=== PATIENT | female | born 1945 | race Caucasian/White ===

== ENCOUNTER 2017-12-15 07:39 | Inpatient (IN) | payer MEDICARE ==
[~2017-12-15] VITALS: Ht 165.1 cm; Wt 102.7 kg
[~2017-12-15 07:39] MED LIST: ACETAMIN500 M2 PO; AMLODIPINE BESYL5 MG PO; ATORVASTATIN CA10 MG PO; CLONIDINE0.3 MG PO; COMBIVENT RESPIMAT IN; FLONASE AL50 MCG/ACT; LANTUS SOL100 UNIT/M SC; LOSARTAN POT50 MG PO; MAGNESIUM400 M1; MELOXICAM15 MG PO; METFORMIN HCL500 M3 PO; PEPCID20 MG PO; PRILOSEC20 MG PO; SG ASA LOW81 M1 PO; SINGULAIR10 MG PO; TENORMIN50 MG PO; TRAMADOL HYDROC50 MG PO; TRIAMCINOLON0.11 EX; VITAMIN D2000 UNI1 PO
[2017-12-15] MEDS ORDERED: METRONIDAZOL500 MG PO (08:30)
[2017-12-15] MEDS ORDERED: METOPROL TAR25 MG PO (08:30)
[2017-12-15] MEDS ORDERED: PREDNISONE20 MG PO (08:31)
[2017-12-15] MEDS ORDERED: VERAPAMIL180 M2 PO (08:37)
[2017-12-15 08:46] LABS: HEMATOCRIT 37.5 % (37.0-47.0); HEMOGLOBIN 12.4 g/dl (12.0-16.0); IMMATURE GRANULOCYTES 1.2 % (0.0-1.0); MEAN CORPUSCULAR HGB 28.1 pG CALC (26.0-32.0); MEAN CORPUSCULAR HGB CONC 33.1 g/L CALC (32.0-36.0); NEUT# 8.1 thou/uL (2.00-7.15); RED BLOOD COUNT 4.41 mill/uL (4.20-5.60); RED CELL DISTRI WIDTH 15.8 % (11.5-15.5)
[2017-12-15 09:01] LABS: ALBUMIN 3.4 g/dL (3.2-5.0); ALKALINE PHOSPHATASE 73 u/l (38-126); BILIRUBIN, TOTAL 0.6 mg/dL (0.0-1.4); BUN 9 mg/dL (8-23); BUN/CREATININE RATIO 15 (12-20 (CALC)); CARBON DIOXIDE 28 mmol/l (22-30); CHLORIDE 96 mmol/l (95-108); CREATININE 0.6 mg/dL (0.5-1.0); GFR > 60 ML/MIN (>=60 (CALC)); GFR FOR AFR.AMER. > 60 ML/MIN (>=60 (CALC)); LIPASE 101 u/l (23-300); POTASSIUM 4.9 mmol/l (3.5-5.1); SGOT/AST 23 u/l (9-36); SGPT/ALT 69 u/l (11-66); TOTAL PROTEIN 6.7 g/dL (6.3-8.2)
[2017-12-15 09:04] LABS: ANION GAP 13 (6-22 (CALC)); SODIUM 132 mmol/l (137-146)
[2017-12-15 13:33] VITALS: BP 171/80
[2017-12-15 14:08] LABS: URINE BILIRUBIN - DIPSTICK NEGATIVE (NEGATIVE); URINE BLOOD DIPSTICK NEGATIVE (NEGATIVE); URINE CLARITY CLEAR; URINE COLOR YELLOW; URINE GLUCOSE - DIPSTICK NEGATIVE (NEGATIVE); URINE KETONE TRACE mg/dL (NEGATIVE); URINE LEUK ESTERASE NEGATIVE (NEGATIVE); URINE NITRITE - DIPSTICK NEGATIVE (Negative); URINE PROTEIN - DIPSTICK TRACE mg/dL (NEG-TRACE); URINE UROBILINOGEN - DIPSTICK 0.2 E.U./dL (0.2)
[2017-12-15 15:51] LABS: C. DIFFICILE TOXIN A&B NEGATIVE (NEGATIVE)
[2017-12-15 16:00] VITALS: BP 161/81
[2017-12-15 19:00] VITALS: BP 132/67
[2017-12-16 04:48] VITALS: BP 140/66
[2017-12-16 05:06] LABS: HEMATOCRIT 34.1 % (37.0-47.0); HEMOGLOBIN 11.3 g/dl (12.0-16.0); IMMATURE GRANULOCYTES 1.3 % (0.0-1.0); MEAN CELL VOLUME 86.1 fL CALC (80.0-100.0); MEAN CORPUSCULAR HGB 28.5 pG CALC (26.0-32.0); MEAN CORPUSCULAR HGB CONC 33.1 g/L CALC (32.0-36.0); NEUT# 6.8 thou/uL (2.00-7.15); RED BLOOD COUNT 3.96 mill/uL (4.20-5.60); RED CELL DISTRI WIDTH 16.3 % (11.5-15.5)
[2017-12-16 05:26] LABS: ALKALINE PHOSPHATASE 55 u/l (38-126); ANION GAP 13 (6-22 (CALC)); BILIRUBIN, TOTAL 0.5 mg/dL (0.0-1.4); BUN 11 mg/dL (8-23); BUN/CREATININE RATIO 12 (12-20 (CALC)); CARBON DIOXIDE 28 mmol/l (22-30); CHLORIDE 98 mmol/l (95-108); CREATININE 0.9 mg/dL (0.5-1.0); GFR > 60 ML/MIN (>=60 (CALC)); GFR FOR AFR.AMER. > 60 ML/MIN (>=60 (CALC)); POTASSIUM 4.3 mmol/l (3.5-5.1); SGOT/AST 21 u/l (9-36); SGPT/ALT 63 u/l (11-66); SODIUM 134 mmol/l (137-146)
[2017-12-16 07:51] VITALS: BP 145/69
[2017-12-16 09:33] LABS: MAGNESIUM 1.8 mg/dL (1.6-2.3)
[2017-12-16 15:11] VITALS: BP 138/67
[2017-12-16 16:08] VITALS: BP 112/52
[2017-12-16 20:10] VITALS: BP 116/60
[2017-12-17 04:51] LABS: HEMATOCRIT 32.1 % (37.0-47.0); HEMOGLOBIN 10.6 g/dl (12.0-16.0); IMMATURE GRANULOCYTES 1.2 % (0.0-1.0); MEAN CELL VOLUME 86.5 fL CALC (80.0-100.0); MEAN CORPUSCULAR HGB 28.6 pG CALC (26.0-32.0); NEUT# 6.16 thou/uL (2.00-7.15); RED BLOOD COUNT 3.71 mill/uL (4.20-5.60); RED CELL DISTRI WIDTH 16.7 % (11.5-15.5)
[2017-12-17 04:56] VITALS: BP 127/65
[2017-12-17 05:04] LABS: ANION GAP 14 (6-22 (CALC)); BUN 13 mg/dL (8-23); BUN/CREATININE RATIO 15 (12-20 (CALC)); CARBON DIOXIDE 26 mmol/l (22-30); CHLORIDE 100 mmol/l (95-108); CREATININE 0.9 mg/dL (0.5-1.0); GFR > 60 ML/MIN (>=60 (CALC)); GFR FOR AFR.AMER. > 60 ML/MIN (>=60 (CALC)); MAGNESIUM 1.8 mg/dL (1.6-2.3); POTASSIUM 4.4 mmol/l (3.5-5.1); SODIUM 135 mmol/l (137-146)
[2017-12-17 07:50] VITALS: BP 132/72
[2017-12-17 15:33] VITALS: BP 109/61
[2017-12-17 19:52] VITALS: BP 130/70
[2017-12-18 04:19] VITALS: BP 115/50
[2017-12-18 07:40] VITALS: BP 105/51
[2017-12-18] MEDS ORDERED: FLORASTOR250 M1 PO (12:09)
[2017-12-18] MEDS ORDERED: TRAMADOL HYDROC50 MG PO (12:09)
[2017-12-18] MEDS ORDERED: catapres PO (12:12)
[2017-12-18 15:06] VITALS: BP 105/51
== END 2017-12-18 15:48 | DRG 394 ==
LOC: ED 07:39 → ED-I 10:34 → ED 10:55 → MS2 10:56
PROVIDERS: Emergency Medicine; Nurse Practitioner; Nurse Practitioner Family; ADMIT Internal Medicine; ATTEND Internal Medicine
DX: K52.1 Toxic gastroenteritis and colitis (principal); T38.3X5A Adverse effect of insulin and oral hypoglycemic [antidiabetic] drugs, initial encounter; T36.0X5A Adverse effect of penicillins, initial encounter; T47.1X5A Adverse effect of other antacids and anti-gastric-secretion drugs, initial encounter; T37.3X5A Adverse effect of other antiprotozoal drugs, initial encounter; I47.1 Supraventricular tachycardia; E11.22 Type 2 diabetes mellitus with diabetic chronic kidney disease; E11.42 Type 2 diabetes mellitus with diabetic polyneuropathy; E11.65 Type 2 diabetes mellitus with hyperglycemia; I48.91 Unspecified atrial fibrillation; I12.9 Hypertensive chronic kidney disease with stage 1 through stage 4 chronic kidney disease, or unspecified chronic kidney disease; E86.0 Dehydration; E78.5 Hyperlipidemia, unspecified; N18.3 Chronic kidney disease, stage 3 (moderate); J44.9 Chronic obstructive pulmonary disease, unspecified; M06.9 Rheumatoid arthritis, unspecified; I25.10 Atherosclerotic heart disease of native coronary artery without angina pectoris; K80.20 Calculus of gallbladder without cholecystitis without obstruction; K57.30 Diverticulosis of large intestine without perforation or abscess without bleeding; Z79.4 Long term (current) use of insulin; Z87.01 Personal history of pneumonia (recurrent); Z87.891 Personal history of nicotine dependence
CPT/HCPCS: J1650

== ENCOUNTER 2017-12-27 08:30 | Inpatient (IN) | payer MEDICARE ==
[~2017-12-27] VITALS: Ht 165.1 cm; Wt 105.0 kg
[2017-12-27 08:30] VITALS: BP 160/65
[~2017-12-27 08:30] MED LIST changes: +FLORASTOR250 M1 PO; +METOPROL TAR25 MG PO; +METRONIDAZOL500 MG PO; +PREDNISONE20 MG PO; +VERAPAMIL180 M2 PO; +catapres PO
[2017-12-27 12:53] VITALS: BP 164/65
[2017-12-27 13:40] LABS: ALBUMIN 3.4 g/dL (3.2-5.0); BILIRUBIN, TOTAL 0.4 mg/dL (0.0-1.4); CREATININE 1.8 mg/dL (0.5-1.0); POTASSIUM 4.1 mmol/l (3.5-5.1); TOTAL PROTEIN 6.8 g/dL (6.3-8.2)
[2017-12-27 17:54] VITALS: BP 148/61
[2017-12-27 20:20] VITALS: BP 160/72
[2017-12-27 22:48] LABS: URINE BILIRUBIN - DIPSTICK NEGATIVE (NEGATIVE); URINE BLOOD DIPSTICK NEGATIVE (NEGATIVE); URINE COLOR YELLOW; URINE GLUCOSE - DIPSTICK NEGATIVE (NEGATIVE); URINE KETONE NEGATIVE (NEGATIVE); URINE LEUK ESTERASE NEGATIVE (NEGATIVE); URINE NITRITE - DIPSTICK NEGATIVE (Negative); URINE PROTEIN - DIPSTICK NEGATIVE (NEG-TRACE); URINE UROBILINOGEN - DIPSTICK 0.2 E.U./dL (0.2)
[2017-12-27 22:50] LABS: URINE CLARITY CLEAR
[2017-12-27 23:40] VITALS: BP 154/79
[2017-12-28 03:52] VITALS: BP 168/67
[2017-12-28 06:16] LABS: HEMATOCRIT 31.1 % (37.0-47.0); HEMOGLOBIN 10.4 g/dl (12.0-16.0); MEAN CELL VOLUME 86.6 fL CALC (80.0-100.0); MEAN CORPUSCULAR HGB CONC 33.4 g/L CALC (32.0-36.0); RED BLOOD COUNT 3.59 mill/uL (4.20-5.60); RED CELL DISTRI WIDTH 15.9 % (11.5-15.5)
[2017-12-28 06:45] LABS: CREATININE 1.1 mg/dL (0.5-1.0); POTASSIUM 4.5 mmol/l (3.5-5.1)
[2017-12-28 06:46] LABS: MAGNESIUM 1.2 mg/dL (1.6-2.3)
[2017-12-28 08:45] VITALS: BP 180/77
[2017-12-28 17:00] VITALS: BP 159/71
[2017-12-28 20:15] VITALS: BP 170/62
[2017-12-28 21:10] VITALS: BP 157/70
[2017-12-29] VITALS (8 sets, daily range): BP systolic 156–198; BP diastolic 52–98
[2017-12-29 04:55] LABS: HEMATOCRIT 36.3 % (37.0-47.0); HEMOGLOBIN 11.9 g/dl (12.0-16.0); IMMATURE GRANULOCYTES 0.5 % (0.0-1.0); MEAN CELL VOLUME 87.3 fL CALC (80.0-100.0); MEAN CORPUSCULAR HGB 28.6 pG CALC (26.0-32.0); MEAN CORPUSCULAR HGB CONC 32.8 g/L CALC (32.0-36.0); NEUT# 6.64 thou/uL (2.00-7.15); RED BLOOD COUNT 4.16 mill/uL (4.20-5.60); RED CELL DISTRI WIDTH 15.9 % (11.5-15.5)
[2017-12-29 05:08] LABS: ANION GAP 18 (6-22 (CALC)); BUN 15 mg/dL (8-23); BUN/CREATININE RATIO 17 (12-20 (CALC)); CARBON DIOXIDE 27 mmol/l (22-30); CHLORIDE 96 mmol/l (95-108); CREATININE 0.9 mg/dL (0.5-1.0); GFR > 60 ML/MIN (>=60 (CALC)); GFR FOR AFR.AMER. > 60 ML/MIN (>=60 (CALC)); MAGNESIUM 1.5 mg/dL (1.6-2.3); POTASSIUM 4.2 mmol/l (3.5-5.1); SODIUM 137 mmol/l (137-146)
[2017-12-30] VITALS (24 sets, daily range): BP systolic 130–209; BP diastolic 57–101
[2017-12-30 04:47] LABS: HEMATOCRIT 32.8 % (37.0-47.0); HEMOGLOBIN 10.9 g/dl (12.0-16.0); IMMATURE GRANULOCYTES 0.8 % (0.0-1.0); MEAN CELL VOLUME 86.5 fL CALC (80.0-100.0); MEAN CORPUSCULAR HGB 28.8 pG CALC (26.0-32.0); MEAN CORPUSCULAR HGB CONC 33.2 g/L CALC (32.0-36.0); NEUT# 5.41 thou/uL (2.00-7.15); RED BLOOD COUNT 3.79 mill/uL (4.20-5.60); RED CELL DISTRI WIDTH 15.7 % (11.5-15.5)
[2017-12-30 05:12] LABS: ANION GAP 16 (6-22 (CALC)); BUN 12 mg/dL (8-23); BUN/CREATININE RATIO 14 (12-20 (CALC)); CARBON DIOXIDE 26 mmol/l (22-30); CHLORIDE 97 mmol/l (95-108); CREATININE 0.8 mg/dL (0.5-1.0); GFR > 60 ML/MIN (>=60 (CALC)); GFR FOR AFR.AMER. > 60 ML/MIN (>=60 (CALC)); MAGNESIUM 1.3 mg/dL (1.6-2.3); POTASSIUM 3.8 mmol/l (3.5-5.1); SODIUM 136 mmol/l (137-146)
[2017-12-31] VITALS (15 sets, daily range): BP systolic 146–203; BP diastolic 54–82
[2017-12-31 05:20] LABS: HEMATOCRIT 32.6 % (37.0-47.0); HEMOGLOBIN 10.9 g/dl (12.0-16.0); IMMATURE GRANULOCYTES 0.6 % (0.0-1.0); MEAN CELL VOLUME 86.2 fL CALC (80.0-100.0); MEAN CORPUSCULAR HGB 28.8 pG CALC (26.0-32.0); MEAN CORPUSCULAR HGB CONC 33.4 g/L CALC (32.0-36.0); NEUT# 5.46 thou/uL (2.00-7.15); RED BLOOD COUNT 3.78 mill/uL (4.20-5.60); RED CELL DISTRI WIDTH 15.7 % (11.5-15.5)
[2017-12-31 05:31] LABS: ANION GAP 13 (6-22 (CALC)); BUN 8 mg/dL (8-23); BUN/CREATININE RATIO 13 (12-20 (CALC)); CARBON DIOXIDE 27 mmol/l (22-30); CHLORIDE 98 mmol/l (95-108); CREATININE 0.7 mg/dL (0.5-1.0); GFR > 60 ML/MIN (>=60 (CALC)); GFR FOR AFR.AMER. > 60 ML/MIN (>=60 (CALC)); POTASSIUM 3.4 mmol/l (3.5-5.1); SODIUM 135 mmol/l (137-146)
== END 2017-12-31 15:15 | disposition short-term general hospital (02) | DRG 308 ==
LOC: MS2 08:30 → ICU 12-30 12:00
PROVIDERS: Internal Medicine; Nurse Practitioner Family; ADMIT Internal Medicine; ATTEND Internal Medicine
DX: I49.5 Sick sinus syndrome (principal); I50.33 Acute on chronic diastolic (congestive) heart failure; N17.9 Acute kidney failure, unspecified; E11.22 Type 2 diabetes mellitus with diabetic chronic kidney disease; I10 Essential (primary) hypertension; E11.42 Type 2 diabetes mellitus with diabetic polyneuropathy; J44.9 Chronic obstructive pulmonary disease, unspecified; K59.00 Constipation, unspecified; I16.0 Hypertensive urgency; K21.9 Gastro-esophageal reflux disease without esophagitis; I48.91 Unspecified atrial fibrillation; M19.90 Unspecified osteoarthritis, unspecified site; I25.10 Atherosclerotic heart disease of native coronary artery without angina pectoris; M06.9 Rheumatoid arthritis, unspecified; E78.5 Hyperlipidemia, unspecified; N18.3 Chronic kidney disease, stage 3 (moderate); D64.9 Anemia, unspecified; E11.649 Type 2 diabetes mellitus with hypoglycemia without coma; E83.42 Hypomagnesemia; Z79.4 Long term (current) use of insulin; Z87.01 Personal history of pneumonia (recurrent); Z87.891 Personal history of nicotine dependence
CPT/HCPCS: G0378; G0379; J0282; J1650; J3475; S0164